=== PATIENT | male | born 1975 | race Two or more races ===

== ENCOUNTER 2021-01-16 07:38 | Day surgery (SDC) | payer OTHER ==
[~2021-01-16 07:38] MED LIST: AVAPRO150 MG PO; ZYRTEC10 M3 PO
[2021-01-16] MEDS ORDERED: ULTRACET PO (10:05)
== END 2021-01-16 16:30 | disposition home or self-care (01) ==
LOC: CIR.AMB 07:38
PROVIDERS: ATTEND Surgery
DX: K60.3 Anal fistula (principal); Z20.822 Contact with and (suspected) exposure to COVID-19

== ENCOUNTER 2021-05-08 06:52 | Day surgery (SDC) | payer OTHER ==
[~2021-05-08 06:52] MED LIST changes: +ULTRACET PO
[2021-05-08] MEDS ORDERED: PERCOCET 5-3251 EACH PO (11:19)
[2021-05-08] MEDS ORDERED: COLACE100 MG PO (11:19)
== END 2021-05-08 17:10 | disposition home or self-care (01) ==
LOC: CIR.AMB 06:52
PROVIDERS: ATTEND Surgery
DX: K60.5 Anorectal fistula (principal); Z20.822 Contact with and (suspected) exposure to COVID-19